=== PATIENT | male | born 1990 ===

== ENCOUNTER 2017-04-14 16:39 | Emergency (ER) | payer BC, OTHER ==
[2017-04-14 16:40] VITALS: BMI 39.9
[2017-04-14 16:50] VITALS: BP 137/77; PULSE 78; RESP 18; TEMP 99.4; O2SAT 99
--- NOTE | 2017-04-14 17:09 | ED PDOC ---
Lower Extremity Pain/Injury Time Seen by Provider: 04/14/17 16:52 Chief Complaint (Nursing): Lower Extremity Problem/Injury Chief Complaint (Provider): left ankle pain History Per: Patient History/Exam Limitations: no limitations Onset/Duration Of Symptoms: Days (x 2) Current Symptoms Are (Timing): Still Present Additional Complaint(s): Donavan is a 26 y/o male who presents to the ED for evaluation of left ankle pain s/p twisting injury sustained last night. He states while walking home last night, he tripped on a curb and twisted his left ankle. He denies taking any medications for pain relief. He is able to bear weight on his left leg, with pain. No associated numbness or tingling to affected area. PMD: None - Hip Description Of Injury: Tripped Past Medical History Reviewed: Historical Data, Nursing Documentation, Vital Signs Vital Signs: Last Vital Signs Temp 99.4 F 04/14/17 16:48 Pulse 78 04/14/17 16:48 Resp 18 04/14/17 16:48 BP 137/77 04/14/17 16:48 Pulse Ox 99 04/14/17 16:48 - Medical History PMH: No Chronic Diseases - Surgical History Surgical History: No Surg Hx - Family History Family History: States: No Known Family Hx - Living Arrangements Living Arrangements: With Family - Social History Current smoker - smoking cessation education provided: Yes Alcohol: Social Drugs: Denies - Home Medications Home Medications: Ambulatory Orders Medication Instructions Recorded oxyCODONE/Acetaminophen [Percocet 1 tab PO QID PRN #15 tab 10/15/14 5/325 mg Tab] Ibuprofen [Motrin Tab] 800 mg PO Q8 PRN #20 tab 04/14/17 - Allergies Allergies/Adverse Reactions: Allergies Allergy/AdvReac Type Severity Reaction Status Date / Time No Known Allergies Allergy Verified 10/15/14 09:39 Wells Criteria for PE - Wells Criteria for Pulmonary Embolism Clinical Signs and Symptoms of DVT: No P.E is #1 Diagnosis, or Equally Likely: No Heart Rate >100: No Immobilization at least 3 days;Surgery previous 4 weeks: No Previous, objectively diagnosed PE or DVT: No Hemoptysis: No Malignancy w/treatment within 6 months, or palliative: No Total Score: 0 Review of Systems ROS Statement: Except As Marked, All Systems Reviewed And Found Negative Musculoskeletal: Positive for: Other (left ankle pain) Physical Exam - Reviewed Nursing Documentation Reviewed: Yes Vital Signs Reviewed: Yes - Physical Exam Appears: Positive for: Well, Non-toxic, No Acute Distress Head Exam: Positive for: ATRAUMATIC, NORMAL INSPECTION, NORMOCEPHALIC Skin: Positive for: Normal Color. Negative for: Rash Eye Exam: Positive for: Normal appearance Extremity: Positive for: Normal ROM, Tenderness (Tenderness and swelling to the left lateral malleolus. Full ROM at left ankle. Left foot is non-tender.). Negative for: Deformity Neurologic/Psych: Positive for: Alert, Oriented - ECG O2 Sat by Pulse Oximetry: 99 (RA) Pulse Ox Interpretation: Normal - Other Rad Left ankle x-ray X-Ray: Interpreted by Me, Viewed By Me X-Ray Interpretation: no fx, no dis Medical Decision Making Medical Decision Making: Time: 17:03 Impression: 26 year old male with left ankle injury Initial Plan: --Patient given Motrin, 600 mg PO --X-Ray Left Ankle Patient is aware of x-ray results, all questions answered. Patient already has crutches from home that he has been using all day. Upon provider reevaluation patient is medically stable, and requires no further treatment in the ED at this time. Patient will be discharged home and given air cast. Counseling was provided and all questions were answered regarding diagnosis and need for follow up with PMD. There is agreement to discharge plan. Return if symptoms persist or worsen. Scribe Attestation: Documented by Rody Rutherford, acting as a scribe for Ricarda Nelson PA-C Provider Scribe Attestation: All medical record entries made by the Scribe were at my direction and personally dictated by me. I have reviewed the chart and agree that the record accurately reflects my personal performance of the history, physical exam, medical decision making, and the department course for this patient. I have also personally directed, reviewed, and agree with the discharge instructions and disposition. Procedures - Splinting Location: left ankle Pre-Made Type: jovana wrap and aircast Pre-Proc Neuro Vasc Exam: normal Post-Proc Neuro Vasc Exam: normal Disposition - Clinical Impression Clinical Impression: Ankle sprain and strain - Patient ED Disposition Is Patient to be Admitted: No Counseled Patient/Family Regarding: Studies Performed, Diagnosis, Need For Followup, Rx Given - Disposition Referrals: Podiatry Clinic [Outside] Disposition: Routine/Home Disposition Time: 17:48 Condition: STABLE Additional Instructions: Ice, rest and elevate affected area. Take rx meds as directed as needed for pain. Follow up with podiatry clinic in 2-3 days. Prescriptions: Ibuprofen [Motrin Tab] 800 mg PO Q8 PRN #20 tab PRN Reason: Pain, Moderate (4-7) Instructions: Ankle Sprain (ED), Ankle Stirrup Splint (ED) Forms: [employer] [facility] ([place]), [facility] ED School/Work Excuse
--- NOTE | 2017-04-14 17:58 | RAD ---
PROCEDURE: Left Ankle Radiographs. HISTORY: trauma COMPARISON: None available. FINDINGS: BONES: No acute displaced fracture. JOINTS: No dislocation. SOFT TISSUES: Mild soft tissue swelling. No evidence of radiopaque foreign body. OTHER FINDINGS: None. IMPRESSION: Mild soft tissue swelling. No acute displaced fracture or dislocation identified. If symptoms persist or if there is clinical concern, x-ray follow-up in 7-10 days should be considered.
== END 2017-04-14 18:15 | disposition home or self-care (01) ==
LOC: H.ER 16:39
DX: S93.402A Sprain of unspecified ligament of left ankle, initial encounter (principal); X50.9XXA Other and unspecified overexertion or strenuous movements or postures, initial encounter; Y92.89 Other specified places as the place of occurrence of the external cause

== ENCOUNTER 2018-02-27 21:00 | Emergency (ER) | payer BC, OTHER ==
[2018-02-27 21:00] VITALS: BMI 39.9
[2018-02-27 21:27] VITALS: BP 139/97; PULSE 77; RESP 18; TEMP 99.1; O2SAT 95
--- NOTE | 2018-02-27 22:49 | ED PDOC ---
Upper Extremity Pain/Injury Time Seen by Provider: 02/27/18 21:18 Chief Complaint (Nursing): Upper Extremity Problem/Injury Chief Complaint (Provider): Right forearm pain History Per: Patient History/Exam Limitations: no limitations Onset/Duration Of Symptoms: Hrs Current Symptoms Are (Timing): Still Present Quality: Dull Additional Complaint(s): 27 yo male with no medical problems presents with right forearm pain. Pt reports acute onset while lifting a refrigerator earlier today. Pt reports pain with movement. Past Medical History Reviewed: Historical Data, Nursing Documentation, Vital Signs Vital Signs: Last Vital Signs Temp 99.1 F 02/27/18 21:24 Pulse 77 02/27/18 21:24 Resp 18 02/27/18 21:24 BP 139/97 H 02/27/18 21:24 Pulse Ox 95 02/27/18 21:24 - Medical History PMH: No Chronic Diseases - Surgical History Surgical History: No Surg Hx - Family History Family History: States: No Known Family Hx - Living Arrangements Living Arrangements: With Family - Social History Current smoker - smoking cessation education provided: No - Immunization History Hx Influenza Vaccination: No Hx Pneumococcal Vaccination: No - Home Medications Home Medications: Ambulatory Orders Medication Instructions Recorded oxyCODONE/Acetaminophen [Percocet 1 tab PO QID PRN #15 tab 10/15/14 5/325 mg Tab] Ibuprofen [Motrin Tab] 800 mg PO Q8 PRN #20 tab 04/14/17 Ibuprofen [Motrin Tab] 800 mg PO Q6H PRN #20 tab 02/27/18 - Allergies Allergies/Adverse Reactions: Allergies Allergy/AdvReac Type Severity Reaction Status Date / Time No Known Allergies Allergy Verified 10/15/14 09:39 Review of Systems ROS Statement: Except As Marked, All Systems Reviewed And Found Negative Constitutional: Negative for: Fever, Chills Musculoskeletal: Positive for: Other Physical Exam - Reviewed Nursing Documentation Reviewed: Yes Vital Signs Reviewed: Yes - Physical Exam Appears: Positive for: Well, Non-toxic, No Acute Distress Head Exam: Positive for: ATRAUMATIC, NORMAL INSPECTION, NORMOCEPHALIC Skin: Positive for: Normal Color (No erythema, no ecchymosis ), Warm Eye Exam: Positive for: Normal appearance ENT: Positive for: Normal ENT Inspection Neck: Positive for: Normal Respiratory: Negative for: Accessory Muscle Use, Respiratory Distress Pulses-Radial (L): 2+ Pulses-Radial (R): 2+ Back: Positive for: Normal Inspection Extremity: Positive for: Normal ROM (Strength in right wrist, elbow and shoulder 5/5 ), Other (Palpable ball mid-right anterior forearm). Negative for : Tenderness, Deformity, Swelling Neurologic/Psych: Positive for: Alert, Oriented - ECG O2 Sat by Pulse Oximetry: 95 Medical Decision Making Medical Decision Making: Discussed f/u for MRI if pain continued. Disposition - Clinical Impression Clinical Impression: Muscle strain - Patient ED Disposition Is Patient to be Admitted: No Counseled Patient/Family Regarding: Diagnosis, Need For Followup, Rx Given - Disposition Referrals: Walter Ma III, MD [Staff Provider] - Disposition: Routine/Home Disposition Time: 22:47 Condition: GOOD Additional Instructions: Ice, elevation, motrin for pain. Follow-up with orthopedics of pain continues. Prescriptions: Ibuprofen [Motrin Tab] 800 mg PO Q6H PRN #20 tab PRN Reason: Pain Instructions: Muscle Strain (DC)
== END 2018-02-27 23:01 | disposition home or self-care (01) ==
LOC: H.ER 21:00
DX: S56.911A Strain of unspecified muscles, fascia and tendons at forearm level, right arm, initial encounter (principal); X50.0XXA Overexertion from strenuous movement or load, initial encounter